=== PATIENT | male | born 1950 | race Caucasian/White ===

== ENCOUNTER 2020-12-01 23:04 | Inpatient (IN) | payer OTHER ==
[~2020-12-01] VITALS: Ht 177.8 cm; Wt 86.0 kg
--- NOTE | ~2020-12-01 | EMS ---
[facility] [address] [place] [address] EMS Patient Care Report Name: MERVAT MITCHELL Room #: REG MELINA Walker#: [id number] Admission: 12/01/20 Attend Phys: Discharge: Date of : 46 Report #: [id number] THIS REPORT FOR: //name// Report Transmitted: 12/01/2020 22:44 EMS Care Summary [facility] MED-ACT Incident [id number] @ 12/01/2020 22:37 Incident Location [address] [place] [address] [place] [address] Patient MERVAT MITCHELL Male, 70 Years 1950 Patient Address [address] [place] [address] [place] [address] Patient History Diabetes,Hypertension (HTN),Hyperlipidemia, Patient Allergies No known allergies, Patient Medications Amlodipine, Metformin, Losartan, Glimepiride, Prednisone, Levemir, Chief Complaint CHEST PAIN Disposition Transported No Lights/[place] Dispatch Reason Chest Pain (Non-Traumatic) Transported To [facility] Narrative M1134 IS DISPATCHED AND RESPONDS NOTED. UPON ARRIVAL AT SCENE M1134 IS DIRECTED TO BEDROOM. 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 TONIGHT HE TOLD HER TO ACTIVATE EMS DUE TO SUDDEN ONSET OF CHEST PAIN. UPON PT CONTACT PT IS FOUND SUPINE ON BED, ALERT, TRACKING, SHOWING NO SIGNS OF DISTRESS OR OBVIOUS TRAUMA. PT C/O 8/10 ANTERIOR SUBSTERNAL CP THAT IS RADIATING INTO L ARM AND NECK THAT IS NON-REPRODUCIBLE. PT STATES NOTHING MAKES IT BETTER OR WORSE. PT DENIES SOA, NVD OR OTHER UNLISTED COMPLAINTS. PT DENIES PREVIOUS CARDIAC HISTORY. 12-LEAD ACQUIRED, UNABLE TO TRANSMIT DUE TO BEING [place] FD AND TRANSMIT NON-FUNCTIONAL. STEMI ALERT CALLED. COMBO PADS PLACED PRECAUTION. PT MOVED TO COT, SECURED WITH ALL STRAPS, MOVED TO AMBULANCE WITHOUT INCIDENT. PT TRANSPORTED TO [facility] STEMI FACILTY PER PROTOCOL AND AGREEMENT OF PT WITH LFD PARTY DIRECTOR. RADIO REPORT CALLED ENROUTE WITH FULL STEMI ACTIVATION. PT MONITORED EROUTE. UPON ARRIVAL AT [facility] ER PT MOVED TO ER ROOM 6, PLACED IN BED WITH RAILS UP. PT CARE TRANSFERRED DIRECTLY TO ER PHYSICIAN WITH VERBAL REPORT AND POSTIVIE PT HANDOFF. Initial Vitals @PTAP: 53,R: 18,BP: 145/78,GCS: 15,SpO2: 98,Revised Trauma: 12, @22:58P: 55,R: 18,BP: 153/89,Pain: 4/10,GCS: 15,SpO2: 95,Revised Trauma: 12, @22:52P: 50,R: 18,BP: 130/79,Pain: 8/10,GCS: 15,CO: 1,SpO2: 97,Revised Trauma: 12, @PTAP: 53,R: 18,BP: 135/77,Pain: 8/10,GCS: 15,Temp: 98.2F,Glucose: 377,CO: 1,SpO2: 97,Revised Trauma: 12, Assessments @22:46MENTAL:Person Oriented,Time Oriented,Place Oriented,Event Oriented,SKIN:Pale,HEENT:Eyes: Left Pupil: 4-mm,Eyes: Right Pupil: 4-mm,LUNG SOUNDS:Left Upper: Distension,Right Upper: Distension,Left Lower: Distension,Right Lower: Distension,ABDOMEN:Left Upper: Distension,Right Upper: Distension,Left Lower: Distension,Right Lower: Distension,PELVIS//GI:EXTREMITIES:Capillary Refill: Right Upper: < 2 Sec,Capillary Refill: Left Upper: < 2 Sec,PULSE:Radial: 2+ Normal,NEURO: Impression ST elevation (STEMI) myocardial infarction of inferior wall Procedures @22:5412-Lead ECGResponse: UnchangedSucceeded@22:4712-Lead ECGResponse: UnchangedSucceeded@22:59Fentanyl - 50 Micrograms (mcg) - Intravenous (IV)Response: Improved@22:48Saline Lock 10cc (20 ga) Site: Antecubital-RightResponse: UnchangedSucceeded@22:57Fentanyl - 50 Micrograms (mcg) - Intravenous (IV)Response: Improved@PTAAspirin - 324 Milligrams (mg) - [address] [address] EMS Patient Care Report Name: MERVAT MITCHELL Room #: ESTEPHANIA Walker#: [id number] Admission: 12/01/20 Attend Phys: Discharge: Date of : 48 Report #: [id number] OralResponse: Unchanged@22:48STEMI AlertResponse: Unchanged@22:58Surgical Mask on PatientResponse: Unchanged@22:46ALS AssessmentResponse: UnchangedSucceeded Timeline LASTING ROOM SUPERVISOR,Aspirin - 324 Milligrams (mg) - Oral,Response: Unchanged LASTING ROOM SUPERVISOR,BP: 145/78 M,PULSE: 53,RR: 18 R,SPO2: 98 Ox,ETCO2: ,BG: ,PAIN: ,GCS: 15, LASTING ROOM SUPERVISOR,BP: 135/77 M,PULSE: 53,RR: 18 R,SPO2: 97 Ox,ETCO2: ,B,PAIN: 8,GCS: 15, 22:36,Call Received 22:36,Psap Call 22:37,Dispatched 22:39,En Route 22:43,On Scene 22:45,At Patient 22:46,ALS Assessment,Response: UnchangedSucceeded, 22:47,12-Lead ECG,Response: UnchangedSucceeded, 22:48,STEMI Alert,Response: Unchanged 22:48,Saline Lock 10cc 20 ga Site: Antecubital-Right,Response: UnchangedSucceeded, 22:52,BP: 130/79 M,PULSE: 50,RR: 18 R,SPO2: 97 Ox,ETCO2: ,BG: ,PAIN: 8,GCS: 15, 22:54,12-Lead ECG,Response: UnchangedSucceeded, 22:57,Fentanyl - 50 Micrograms (mcg) - Intravenous (IV),Response: Improved 22:58,Surgical Mask on Patient,Response: Unchanged 22:58,BP: 153/89 M,PULSE: 55,RR: 18 R,SPO2: 95 Ox,ETCO2: ,BG: ,PAIN: 4,GCS: 15, 22:59,Fentanyl - 50 Micrograms (mcg) - Intravenous (IV),Response: Improved 23:00,Depart Scene 23:01,At Destination 23:04,Transfer Patient 23:27,Call Closed Disclaimer v1.1 Copyright 2020 [employer] This EMS Care Summary contains data elements from the applicable legal record (which may be displayed differently). It is designed to provide pertinent information for the following purposes: continuity of care, clinical quality, and state data reporting. The complete legal record is available to ED staff and administrators of the receiving hospital in ES's Patient Tracker. All data is provided "as is."
[2020-12-01 23:21] VITALS: BP 114/58
[2020-12-01 23:29] LABS: ABSOLUTE NEUTROPHILS 8.5 thou/uL (1.4-8.2); BASOPHILS 0.8 % (0.0-2.0); EOSINOPHILS 1.5 % (0.0-3.0); HEMATOCRIT 38.3 % (42.0-52.0); HEMOGLOBIN 13.4 gm/dL (14.0-18.0); LYMPHOCYTES 11.2 % (24.0-44.0); MCH 30.9 pg (26.0-34.0); MCHC 34.8 g/dL (28.0-37.0); MCV 88.6 fL (80.0-100.0); MONOCYTES 7.6 % (1.0-8.0); PLATELET COUNT 237 thou/uL (150-400); POLYS 78.9 % (36.0-66.0); RBC 4.33 mil/uL (4.50-6.00); RDW 15.2 % (10.5-14.5); WBC 10.7 thou/uL (4.0-11.0)
[2020-12-01 23:30] VITALS: BP 108/56
[2020-12-01 23:43] LABS: CALCIUM 8.1 mg/dL (8.5-10.1); CREATININE 2.3 mg/dL (0.7-1.3)
[2020-12-01 23:46] LABS: APTT 23.1 Seconds (24.5-32.8); INR 0.92; PROTIME 10.1 Seconds (10.5-12.1)
[2020-12-01 23:50] LABS: ALBUMIN 3.7 g/dL (3.4-5.0); TOTAL BILIRUBIN 0.6 mg/dL (0.2-1.0); TOTAL PROTEIN 6.9 g/dL (6.4-8.2); TROPONIN-I 0.08 ng/mL (<0.06)
--- NOTE | 2020-12-01 23:51 | NUR ---
SEE STEMI PAPER DOCUMENTATION
[2020-12-02] VITALS (34 sets, daily range): BP systolic 118–163; BP diastolic 61–81
--- NOTE | 2020-12-02 05:59 | NUR ---
ASSUMED CARE OF PATIENT FROM [facility] OPERATOR CORE SAND RN. PATIENT ALERT AND ORIENTED, ABLE TO COMPLETE ADMISSION HISTORY WITH THIS RN. GROIN SITE CLEAN, DRY, NO HEMATOMA. INSTRUCTIONS GIVEN TO PATIENT TO NOTIFY THIS RN IF CHEST PAIN RETURNED. FAMILY ABLE TO SEE HIM AND UPDATED ON POC. POC GOALS ESTABLISHED.
[2020-12-02 06:30] LABS: CHOLESTEROL 157 mg/dL (<200); HDL CHOLESTEROL 24 mg/dL (>40); LDL CHOLESTEROL 54 mg/dL (<100); SERUM ASSESSMENT Moderate Lipemia; TC:HDL 6.5 Ratio (Not establshd); TRIGLYCERIDE 398 mg/dL (<150); VLDL 80 mg/dL (<40)
[2020-12-02 06:31] LABS: TROPONIN-I 26.38 ng/mL (<0.06)
--- NOTE | 2020-12-02 07:28 | EKG ---
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
--- NOTE | 2020-12-02 09:18 | CATHLAB ---
[facility] [place] [address] INVASIVE PROCEDURE REPORT Name: MERVAT MITCHELL Room #: 242-P ADM IN M.R.#: [id number] Admission: 12/01/20 Attend Phys: Stuart Nathan MD Discharge: Date of : 48 Report #: [id number] THIS REPORT FOR: cc: Kathi Islas MD, Lisa MD Park, Jin S. MD ~ APPROVED REPORT Study performed: 12/01/2020 23:37:21 Patient Details Patient Status: ED Room #: The patient is a 70 year-old male Event Personnel Sinan Olvera Trailer Driver, Mervat Kelly RN RN, Teresa Jones Monitor, Fransisco Sargent RTR Scrub Procedures Performed Art Access - R femoral artery* Left Heart Cath w/or w/o Coronaries [id number] [facility] [address] Place w/wo Plasty Single RCA [id number] 03879 Initial Mod Sed Same Phys/QHP Gr5y 100177 84480 Mod Sed Same Phys/QHP Ea 250482 Hemostasis w/ Mynx Indication STEMI (>0 to less than or equal to 6 hours), Dyspnea, Chest pain Risk Factors Hypercholesterolemia, Hypertension, Diabetes Procedure Narrative The Right Groin^ was infiltrated with subcutaneous anesthesia. A PINNACLE 6FR Sheath #[id number] sheath was inserted into the RFA^. Coronary angiography was performed using coronary diagnostic catheters. The right coronary system was accessed and visualized with a JR4 catheter. The left coronary system was accessed and visualized with a JL4 catheter. The left ventricle was accessed and visualized with a ANGLE PIG catheter. Left ventriculogram was performed in 30 degree projection. There was no hematoma. Intraoperative Conscious Sedation Sedation start time: 2340 Case end Time: 43 [facility] [place] [place] [address] INVASIVE PROCEDURE REPORT Name: MERVAT MITCHELL Room #: 242-P [facility] IN [facility].#: [id number] Admission: 12/01/20 Attend Phys: Stuart Nathan, Discharge: Date of : 48 Report #: [id number] Fluoro Time: 9.31 minutes Dose: DAP 9625.70 cGycm2 1244 mGy Contrast Type and Amount: Visipaque 185 ml Coronary Angiography The patient's coronary anatomy is right dominant. Diagnostic Cath Left Main The left main artery is a large-caliber vessel with mild disease distally, 20%. LAD The LAD is a moderate-sized caliber vessel, traverses the anterior wall and wraps around the apex. There is mild disease in the proximal and distal segments, 20 to 30%. Diagonal 1 This is a moderate-sized caliber vessel, divides into 2 branches. There is mild disease in the proximal segment. Diagonal 2 This is a small to moderate-sized caliber vessel, patent with no flow-limiting lesions. Circumflex The left circumflex artery is a moderate-sized caliber vessel, patent with no flow-limiting lesions supplies 2 OM vessels. OM1 This is a small to moderate-sized caliber vessel, with mild proximal disease. OM2 This is a small to moderate-sized caliber vessel, patent with no flow-limiting lesions. Right Coronary The RCA is a moderate to large caliber vessel, dominant. There is a total occlusion in the distal segment. R PDA This is a moderate-sized caliber vessel, with no flow-limiting lesions. RPLV There are several RPL branches, with no flow-limiting lesions. Left Ventriculography The left ventricle is mildly dilated in size with Decreased contractility. The left ventricular ejection fraction is estimated to be 35%. Left ventricular wall motion abnormalities are present. There is hypokinesis of the inferior wall. Hemodynamics The aortic pressure is 111/60 mmHg with a mean of 80 mmHg. The left ventricular end diastolic pressure is 24 mmHg. PCI Technique Lesion Percutaneous coronary intervention was performed on the Distal right coronary artery. The lesion stenosis prior to intervention was 100% with YONI 0 flow. A VISTA 6FR JR 4 #[id number] Guide Catheter was used to engage the ostium. A Luge Wire .014 x 182CM #[id number] Interventional [facility] [address] [place] [address] INVASIVE PROCEDURE REPORT Name: MERVAT MITCHELL Room #: [facility] IN M.R.#: [id number] Admission: 12/01/20 Attend Phys: Stuart Nathan, Discharge: Date of : 48 Report #: [id number] Guidewire was used to cross the lesion. BALLOON DILATION A Balloon catheter Euphora RX 2.5 x 12 #[id number] was inserted and inflated up to 14atm for 11seconds. Additional Inflation: 14.00atm for 8seconds. STENT DEPLOYMENT A stent RESOLUTE BON RX 3.5 X 15 #[id number] was inserted and inflated up to 12.00atm for 13seconds. POST STENT DEPLOYMENT BALLOON DILATION A Balloon catheter Euphora NC RX 3.5 x 12 #[id number] was inserted and inflated up to 16.00atm for 15seconds. Final angiography reveals 0 % stenosis with YONI 3 flow. COMMENTS The patient presented to the cardiac Mica Spreader with high-grade AV block. The blood pressure remained stable throughout the procedure. Once coronary flow was restored to the distal branches, the rhythm changed to sinus. Conclusion 1. Successful insertion of a drug-eluting stent into the total occlusion in the distal RCA. 2. The patient presented with high-grade AV block, converted to sinus rhythm once coronary blood flow was restored to the distal branches. 3. There is mild disease in the LAD. 4. There is moderate segmental LV dysfunction. 5. Recommend dual antiplatelet therapy and aggressive risk factor management. <ELECTRONICALLY SIGNED> By: Sinan Olvera MD 12/02/20917 7 7 Sinan Olvera MD /INF
--- NOTE | 2020-12-02 09:44 | EKG ---
[place] [address] [facility] [place] [address] ELECTROCARDIOGRAM REPORT Name: MERVAT MITCHELL Room #: 242- ADM IN M.R.#: [id number] Admission: 12/01/20 Attend Phys: Stuart Nathan MD Discharge: Date of : 46 Report #: [id number] [facility] Test Date: 2020-12-02 Test Time: 09:31:30 Pat Name: MERVAT MITCHELL Department: Room: 242 P Gender: M Department Chair: NANCY : 1950 Requested By: Sinan Olvera Order Number: [id number] MD: Mark Li Measurements Intervals [place] Rate: 79 P: 18 NM: 210 QRS: -40 QRSD: 146 T: -6 QT: 411 QTc: 472 Interpretive Statements Sinus rhythm Right bundle branch block Inferior infarct, recent Compared to ECG 12/01/2020 23:07:08 Sinus rhythm has replaced heart block Inferior injury pattern is less prominent Electronically Signed On 12-02-2020 9:44:01 CDT by Mark Li [email or web address] <ELECTRONICALLY SIGNED> By: Mark Li MD, [facility] 12/02/2044 0 0 Mark Li MD, [facility] /EPI
--- NOTE | 2020-12-02 10:32 | NUR ---
REPORT GIVEN TO ALEXANDRA MORAN. TRANSFERRED TO CCU ROOM 210 VIA W/C. PT ARRIVED IN STABLE CONDITION. PT STANDBY ASSISTED TO BED. AT BEDSIDE. RN NOTIFIED OF PT ARRIVAL TO CCU.
--- NOTE | 2020-12-02 11:50 | 2DMMODE ---
[facility] [place] [address] 2 D/M-MODE ECHOCARDIOGRAM Name: MERVAT MITCHELL Room #: 210-P ADM IN M.R.#: [id number] Admission: 12/01/20 Attend Phys: Stuart Nathan MD Discharge: Date of : 48 Report #: [id number] THIS REPORT FOR: cc: Kathi Islas MD, Lisa MD Park, Jin S. MD ~ APPROVED REPORT Study performed: 12/02/2020 11:01:48 EXAM: Comprehensive 2D, Doppler, and color-flow Echocardiogram Patient Location: Bedside Room #: 210 Status: routine BSA: 2.09 HR: 73 bpm BP: 140/68 mmHg Rhythm: Sinus. Irregular. Other Information Study Quality: Good Indications S/P STEMI, PCI. AV block. Hx: DM, HTN, HLP. 2D Dimensions RVDd: 36.53 mm IVSd: 11.31 (7-11mm) LVOT Diam: 22.47 (18-24mm) LVDd: 47.58 mm PWd: 10.79 (7-11mm) Ascending Ao: 32.10 (22-36mm) LVDs: 38.46 (25-40mm) Left Atrium: 41.98 (27-40mm) Aortic Root: 32.95 mm Volumes Left Atrial Volume (Systole) Single Plane 4CH: 60.75 mL Single Plane 2CH: 69.78 mL LA ESV Index: 33.00 mL/m2 Aortic Valve AoV Peak Javan.: 1.52 m/s AO Peak Gr.: 9.21 mmHg LVOT Max P.77 mmHg LVOT Max V: 0.83 m/s [facility] [address] [address] 2 D/M-MODE ECHOCARDIOGRAM Name: MERVAT MITCHELL Room #: [address] [place] [address] [place] [facility]#: [id number] Admission: 12/01/20 Attend Phys: Stuart Nathan, Discharge: Date of : 46 Report #: [id number] Vmax: 2.17 cm2 Mitral Valve E/A Ratio: 0.6 MV Decel. Time: 210.48 ms MV E Max Javan.: 0.47 m/s MV A Javan.: 0.81 m/s MV PHT: 61.04 ms IVRT: 114.19 ms Pulmonary Valve PV Peak Javan.: 0.96 m/s PV Peak Gr.: 3.69 mmHg Pulmonary Vein P Vein S: 0.35 m/s P Vein A: 0.37 m/s P Vein D: 0.50 m/s P Vein A Dur.: 128.0 msec P Vein S/D Ratio: 0.70 Tricuspid Valve TR Peak Javan.: 2.37 m/s RAP Estimate: 5.00 mmHg TR Peak Gr.: 23.00 mmHg PA Pressure: 28.00 mmHg Left Ventricle The left ventricle is normal size. Regional wall motion abnormalities are noted. Hypokinesis of the inferior wall. There is normal left ventricular wall thickness. Left ventricular systolic function is mildly decreased. LVEF is 45%. Mild diastolic dysfunction is present (impaired relaxation pattern). Right Ventricle The right ventricle is normal size. The right ventricular systolic function is normal. Atria Left atrium is at the upper limits of normal. The right atrium size is normal. Aortic Valve The aortic valve is normal in structure; mildly calcified. No aortic regurgitation is present. There is no aortic valvular stenosis. Mitral Valve The mitral valve is normal in structure; mildly calcified. There is no mitral valve regurgitation noted. No evidence of mitral valve [address] [address] 2 D/M-MODE ECHOCARDIOGRAM Name: GOLDIE MITCHELLER Room #: [address] [place] [address] IN M.R.#: [id number] Admission: 12/01/20 Attend Phys: Stuart Nathan, Discharge: Date of : 46 Report #: [id number] stenosis. Tricuspid Valve The tricuspid valve is normal in structure. Mild tricuspid regurgitation. Estimated PAP is 28mmHg. Pulmonic Valve The pulmonary valve is normal in structure. There is no pulmonic valvular regurgitation. Great Vessels The aortic root is normal in size. The ascending aorta is normal in size. IVC is normal in size and collapses >50% with inspiration. Pericardium There is no pericardial effusion. <Conclusion> The left ventricle is normal size. There is normal left ventricular wall thickness. Left ventricular systolic function is mildly decreased. Hypokinesis of the inferior wall. Mild diastolic dysfunction is present (impaired relaxation pattern). The right ventricle is normal size. Left atrium is at the upper limits of normal. The aortic valve is normal in structure; mildly calcified. There is no mitral valve regurgitation noted. Mild tricuspid regurgitation. Estimated PAP is 28mmHg. <ELECTRONICALLY SIGNED> By: Sinan Olvera MD 12/02/20 1150 1150 1150 Sinan Olvera MD /INF
[2020-12-02] MEDS ORDERED: NORVASC10 MG PO (15:33)
[2020-12-02] MEDS ORDERED: AMARYL2 M1 PO (15:34)
[2020-12-02] MEDS ORDERED: LOSARTAN-HCTZ1 EAC3 PO (15:35)
[2020-12-02] MEDS ORDERED: RAYOS5 MG PO (15:36)
[2020-12-02] MEDS ORDERED: LEVEMIR100 UNIT/1 (15:36)
[2020-12-02] MEDS ORDERED: METFORMIN HCL500 M3 (15:36)
[2020-12-02] MEDS ORDERED: TRULICITY0.75 MG/0. SUBQ (15:37)
[2020-12-03 03:03] LABS: HEMATOCRIT 34.3 % (42.0-52.0); HEMOGLOBIN 11.8 gm/dL (14.0-18.0); MCH 30.4 pg (26.0-34.0); MCHC 34.4 g/dL (28.0-37.0); MCV 88.4 fL (80.0-100.0); RBC 3.88 mil/uL (4.50-6.00); RDW 14.8 % (10.5-14.5); WBC 8.3 thou/uL (4.0-11.0)
[2020-12-03 03:30] LABS: ALBUMIN 3.3 g/dL (3.4-5.0); CALCIUM 8.4 mg/dL (8.5-10.1); CREATININE 1.4 mg/dL (0.7-1.3); POTASSIUM 3.8 mmol/L (3.5-5.1); TOTAL BILIRUBIN 0.7 mg/dL (0.2-1.0); TOTAL PROTEIN 5.9 g/dL (6.4-8.2)
--- NOTE | 2020-12-03 03:47 | NUR ---
SLEPT MOST OF SHIFT. UP AD RYLAN IN ROOM. WORKING ON GOALS AND PLAN OF CARE FOR NOC. NO COMPLAINTS OF CHEST PAIN OR SHORTNESS OF AIR THIS SHIFT. PLANS FOR DISCHARGE TODAY. CONTINUE TO ASSES.
[2020-12-03 04:48] VITALS: BP 131/78
[2020-12-03 08:00] VITALS: BP 138/67
--- NOTE | 2020-12-03 08:44 | HC ---
[facility] [place] [address] CONSULTATION Name: MERVAT MITCHELL Room #: 210- ADM IN M.R.#: [id number] Admission: 12/01/20 Attend Phys: Stuart Ntahan MD Discharge: Date of : 46 Report #: [id number] THIS REPORT FOR: cc: Kathi Islas MD, Lisa MD Park, Jin S. MD ~ DOC #: [id number] Sinan Olvera MD DATE OF SERVICE: 12/01/2020 INDICATION: Chest pain. HISTORY OF PRESENT ILLNESS: This is a pleasant 70-year-old gentleman with a history of diabetes, myopathy, hypertension, presenting with chest pain. He had been working outside on a deck at home. About two hours prior to ER presentation, he developed substernal chest pain radiating down both arms. He felt diaphoretic, but denies any shortness of breath. There was no history of fever, nausea, or chills. ECG reveals sinus rhythm with high-grade AV block with inferior ST elevations. He has been treated with aspirin, Effient, and heparin. PAST MEDICAL HISTORY: Insulin-dependent diabetes mellitus, myopathy, hypertension. MEDICATIONS: Please see MAR for full listing. ALLERGIES: None. SOCIAL HISTORY: Denies tobacco use. REVIEW OF SYSTEMS: As above. PHYSICAL EXAMINATION: VITAL SIGNS: Blood pressure is 110/60, heart rate is 60 beats per minute. GENERAL APPEARANCE: He is a well-developed male in no active distress. HEENT: Normocephalic, atraumatic. Oral mucosa moist. NECK: Supple. LUNGS: Clear to auscultation. CARDIAC: Irregular rhythm, S1, S2 positive. ABDOMEN: Soft, nontender. EXTREMITIES: No edema, no cyanosis. DIAGNOSTIC DATA: ECG reveals sinus rhythm with high-grade AV block, right bundle-branch block, ST elevation in leads II, III, and aVF with reciprocal depressions in V2 and aVL. [facility] [address] [place] [address] CONSULTATION Name: MERVAT MITCHELL Room #: [address] [place] [address] IN ..#: [id number] Admission: 12/01/20 Attend Phys: Sutart Nathan MD Discharge: Date of : 46 Report #: [id number] ASSESSMENT AND PLAN: 1. Acute inferior wall myocardial infarction complicated by high-grade AV block. Treated with aspirin, Effient, and heparin. He will be taken emergently to the cardiac catheterization lab. May require temporary pacemaker. 2. Diabetes mellitus, continue with insulin regimen and check fingersticks. 3. Hypertension, hold medications at this time due to heart block. 4. Hypercholesterolemia, we will initiate statin therapy. 5. Myopathy, on prednisone. Sinan Olvera MD JP/Bernice <ELECTRONICALLY SIGNED> By: Sinan Olvera MD 12/03/20 0844 2237 0311 Sinan Olvera MD /garth
[2020-12-03] MEDS ORDERED: ASPIRIN325 PO (08:59)
[2020-12-03] MEDS ORDERED: COZAAR 25 MG TA25 M1 PO ×2 (08:59→09:01)
[2020-12-03] MEDS ORDERED: EFFIENT10 MG PO ×2 (08:59→09:01)
[2020-12-03] MEDS ORDERED: METOPROLOL SUCC50 MG PO ×2 (08:59→09:01)
[2020-12-03 10:31] VITALS: BP 138/67
--- NOTE | 2020-12-03 11:01 | NUR ---
ASSUMED CARE SHIFT [place]. VSS. R GROIN REMAINS CDI, NO HEMATOMA. BRUISING NOTED. MEDS GIVEN ORDERED. PT UP WALKING MARIANNE WELL. SEEN BY CARDIAC REHAB. DC ORDERS. DISCUSSED WITH PT AND SPOUSE, COMMUNICATING UNDERSTANDING. IV REMOVED. TELE REMOVED. PT LEFT UNIT WITH ALL BELONGINGS.
--- NOTE | 2020-12-03 14:43 | EKG ---
[address] [place] [address] ELECTROCARDIOGRAM REPORT Name: MERVAT MITCHELL Room #: 210-[facility] IN M.R.#: [id number] Admission: 12/01/20 Attend Phys: Stuart Nathan MD Discharge: 12/03/20 Date of : 48 Report #: [id number] 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 : 1950 Requested By: Sinan Olvera Order Number: [id number] MD: Aden Tobin Measurements Intervals Trion Rate: 77 P: 16 AK: 202 QRS: -25 QRSD: 144 T: -42 QT: 443 QTc: 502 Interpretive Statements Sinus rhythm Right bundle branch block Inferior infarct, recent Baseline wander in lead(s) V6 Compared to ECG 12/02/2020 09:31:30 No significant changes Electronically Signed On 12-03-2020 14:43:26 CDT by Aden Tobin [email or web address] <ELECTRONICALLY SIGNED> By: Aden Tobin MD, FACC 12/03/20 1443 0743 0743 Aden Tobin MD, [facility] /EPI
== END 2020-12-03 11:02 | disposition home or self-care (01) | DRG 246 ==
LOC: ER 23:04 → ICU 23:51 → 2N 12-02 10:24
PROVIDERS: Emergency Medicine; Internal Medicine Cardiovascular Disease; Nurse Practitioner Family; ADMIT Internal Medicine; ATTEND Internal Medicine
PROC: B215YZZ Fluoroscopy of Left Heart using Other Contrast (ICD-10-PCS; principal; 2020-12-01)
PROC: 027034Z Dilation of Coronary Artery, One Artery with Drug-eluting Intraluminal Device, Percutaneous Approach (ICD-10-PCS; principal; 2020-12-01)
PROC: 4A023N7 Measurement of Cardiac Sampling and Pressure, Left Heart, Percutaneous Approach (ICD-10-PCS; principal; 2020-12-01)
PROC: B211YZZ Fluoroscopy of Multiple Coronary Arteries using Other Contrast (ICD-10-PCS; principal; 2020-12-01)
DX: I21.19 ST elevation (STEMI) myocardial infarction involving other coronary artery of inferior wall (principal); J96.01 Acute respiratory failure with hypoxia; I44.2 Atrioventricular block, complete; I10 Essential (primary) hypertension; Z96.652 Presence of left artificial knee joint; E78.5 Hyperlipidemia, unspecified; G72.9 Myopathy, unspecified; D89.89 Other specified disorders involving the immune mechanism, not elsewhere classified; E11.65 Type 2 diabetes mellitus with hyperglycemia; E78.00 Pure hypercholesterolemia, unspecified; Z79.899 Other long term (current) drug therapy; Z79.82 Long term (current) use of aspirin; Z85.46 Personal history of malignant neoplasm of prostate; Z92.3 Personal history of irradiation; Z79.4 Long term (current) use of insulin
CPT/HCPCS: 10081; 10203

== ENCOUNTER → 2020-12-16 | Outpatient (CLI) | payer OTHER ==
[~2020-12-16] MED LIST: AMARYL2 M1 PO; ASPIRIN325 PO; COZAAR 25 MG TA25 M1 PO; EFFIENT10 MG PO; LEVEMIR100 UNIT/1; LOSARTAN-HCTZ1 EAC3 PO; METFORMIN HCL500 M3; METOPROLOL SUCC50 MG PO; NORVASC10 MG PO; RAYOS5 MG PO; TRULICITY0.75 MG/0. SUBQ
== END ==
LOC: SJCVC 16:05
PROVIDERS: ATTEND Internal Medicine Cardiovascular Disease
DX: R94.31 Abnormal electrocardiogram [ECG] [EKG] (principal); I45.10 Unspecified right bundle-branch block; I25.10 Atherosclerotic heart disease of native coronary artery without angina pectoris; I10 Essential (primary) hypertension; E78.00 Pure hypercholesterolemia, unspecified; G72.9 Myopathy, unspecified; E11.9 Type 2 diabetes mellitus without complications; E78.5 Hyperlipidemia, unspecified; Z79.899 Other long term (current) drug therapy; Z79.82 Long term (current) use of aspirin; Z79.84 Long term (current) use of oral hypoglycemic drugs; Z72.89 Other problems related to lifestyle

== ENCOUNTER → 2021-04-21 | Outpatient (CLI) | payer OTHER | LOC: SJCVCIMAG 09:05 | PROVIDERS: ATTEND Internal Medicine Cardiovascular Disease | DX: R94.31 Abnormal electrocardiogram [ECG] [EKG] (principal); I45.10 Unspecified right bundle-branch block; I08.8 Other rheumatic multiple valve diseases; I10 Essential (primary) hypertension; I25.10 Atherosclerotic heart disease of native coronary artery without angina pectoris; E78.00 Pure hypercholesterolemia, unspecified; E11.9 Type 2 diabetes mellitus without complications; Z88.8 Allergy status to other drugs, medicaments and biological substances; Z79.82 Long term (current) use of aspirin; Z79.84 Long term (current) use of oral hypoglycemic drugs; Z79.899 Other long term (current) drug therapy; Z72.89 Other problems related to lifestyle; Z95.818 Presence of other cardiac implants and grafts ==